=== PATIENT | male | born 1955 | race Caucasian/White ===

== ENCOUNTER 2019-11-14 11:01 | Observation (INO) ==
[~2019-11-14 11:01] MED LIST: Buffered Lidocaine 1% SYRIN 1 ml INTRADERM ONE; DiMENhydriNATE IV 50 mg/ml 1 ml VIAL IV PUSH ONE; Famotidine IV 10 MG/ML 2 ml VIAL (20 mg) IV ONE; Lactated Ringers 1000 ml BAG 1,000 ML IV SCH; Lidocaine 2% PF 5 ML VIAL ONE; Midazolam 2 mg/2 ml VIAL 1 mg/ml 2 ml VIAL (2 mg) ONE; Propofol 10 MG/ML 20 ML BTL ONE
[2019-11-14] MEDS ORDERED: DiMENhydriNATE IV 50 mg/ml 1 ml VIAL ONE (11:17)
[2019-11-14] MEDS ORDERED: ceFAZolin 2 GM PREMIX 2 GM/50 ML BAG ONE (11:18)
[2019-11-14] MEDS ORDERED: Buffered Lidocaine 1% SYRIN 1 ml INTRADERM ONE (11:18)
[2019-11-14] MEDS ORDERED: Famotidine IV 10 MG/ML 2 ml VIAL (20 mg) ONE (11:46)
[2019-11-14 13:05] LABS: Activated Partial Thrombo Time 32.6 seconds (26.0-38.0); INR 1.04 (0.82-1.09)
[2019-11-14] MEDS ORDERED: fentaNYL 250 mcg/5 ml 50 MCG/ML 5 ml VIAL (250 MCG) ONE (13:06)
[2019-11-14] MEDS ORDERED: Propofol 10 MG/ML 20 ML BTL ONE (13:07)
[2019-11-14] MEDS ORDERED: Ketamine HCL 50 mg/ml 10 ml VIAL (500 MG) ONE (13:07)
[2019-11-14] MEDS ORDERED: Lidocaine 2% PF 5 ML VIAL ONE (13:07)
[2019-11-14] MEDS ORDERED: Midazolam 5 mg/5 ml VIAL 1 mg/ml 5 ml VIAL (5 mg) ONE (13:07)
[2019-11-14] MEDS ORDERED: Succinylcholine 200 mg VIAL 20 mg/ml 10 ml VIAL (200 mg) ONE (13:07)
[2019-11-14] MEDS ORDERED: EPHEDrine (Pressors) 50 MG/ML VIAL ONE (13:46)
[2019-11-14] MEDS ORDERED: fentaNYL 100 mcg/2 ml 50 MCG/ML VIAL ONE ×3 (14:50→17:23)
[2019-11-14] MEDS ORDERED: Ondansetron 4 mg VIAL 2 MG/ML 2 ml VIAL ONE (15:07)
[2019-11-14] MEDS ORDERED: diPHENhydraMINE IV 50 MG/ML 1 ml VIAL (BENADRYL) IV PRN (16:19)
[2019-11-14] MEDS ORDERED: Magnesium Hydroxide LIQ 30 ML UDC PO PRN (16:19)
[2019-11-14] MEDS ORDERED: diPHENhydraMINE 25 mg TAB PO PRN (16:19)
[2019-11-14] MEDS ORDERED: Lactulose 30 ml UDC PO PRN (16:19)
[2019-11-14] MEDS ORDERED: Ondansetron 4 mg VIAL 2 MG/ML 2 ml VIAL IV PRN (16:19)
[2019-11-14] MEDS ORDERED: oxyCODONE/Acetamin 5/325 mg TAB PO PRN ×2 (16:19→16:28)
[2019-11-14] MEDS ORDERED: Morphine 2 MG/ML SYRINGE IV PRN (16:19)
[2019-11-14] MEDS ORDERED: Ondansetron ODT 4 mg TAB 4 MG TAB PO PRN (16:19)
[2019-11-14] MEDS ORDERED: Naloxone 0.4 mg VIAL 0.4 mg/ml 1 ml VIAL IV PRN (16:28)
[2019-11-14] MEDS ORDERED: HYDROcodone/ACETAMIN 5/325 mg TAB PO PRN (16:28)
[2019-11-14] MEDS ORDERED: Prochlorperazine 5 mg/ml 2 ml VIAL (10 mg) IV PRN (16:28)
[2019-11-14] MEDS: fentaNYL 100 mcg/2 ml 50 MCG/ML VIAL IV PRN ×3 (16:29→17:24)
[2019-11-14] MEDS ORDERED: HYDROcodone/ACETAMIN 5/325 mg TAB ONE (16:31)
[2019-11-14] MEDS ORDERED: Morphine 4 MG/ML VIAL (1 ml) ONE (16:58)
[2019-11-14] MEDS ORDERED: Lactated Ringers 1000 ml BAG 1,000 ML IV SCH (17:00)
[2019-11-14] MEDS: Morphine 4 MG/ML VIAL (1 ml) IV PRN ×2 (17:01→17:15)
[2019-11-14] MEDS ORDERED: oxyCODONE/Acetamin 5/325 mg TAB ONE (17:21)
[2019-11-14] MEDS: Magnesium Hydroxide LIQ 30 ML UDC PO SCH (21:44)
[2019-11-14] MEDS: ceFAZolin 1 GM ADVAN 1 GM in NS 0.9% 50 ML 50 ML IVPB SCH (21:45)
[2019-11-14] MEDS: oxyCODONE/Acetamin 5/325 mg TAB PO PRN (22:56)
[2019-11-15] MEDS: ceFAZolin 1 GM ADVAN 1 GM in NS 0.9% 50 ML 50 ML IVPB SCH ×2 (04:44→12:44)
[2019-11-15] MEDS: oxyCODONE/Acetamin 5/325 mg TAB PO PRN ×3 (05:28→13:29)
[2019-11-15 07:11] LABS: Hematocrit 38 % (42-52); Mean Platelet Volume 7.3 fL (7.4-10.4); Platelet Count 294 10^3/uL (150-450)
[2019-11-15 07:20] LABS: BUN/Creatinine Ratio 17.1 (8-20); Calcium 8.6 mg/dL (8.6-10.3); EGFR African American 114.1 (>60); EGFR Non-African American 94.3 (>60); Potassium 4.4 mmol/L (3.5-5.0)
[2019-11-15] MEDS ORDERED: Vitamin THERAPEUTIC TAB PO SCH (09:00)
[2019-11-15] MEDS: Magnesium Hydroxide LIQ 30 ML UDC PO SCH (09:10)
[2019-11-15 12:05] VITALS: BP 104/54
== END 2019-11-15 15:45 | disposition home or self-care (01) ==
LOC: OR 11:01 → EDSTATUS 12:30 → INTOOBSV 16:19 → SSU 16:19
PROVIDERS: ADMIT Orthopaedic Surgery Adult Reconstructive Orthopaedic Surgery; ATTEND Orthopaedic Surgery Adult Reconstructive Orthopaedic Surgery

== ENCOUNTER 2022-09-14 05:41 | Observation (INO) ==
[2022-09-14] MEDS ORDERED: Buffered Lidocaine 1% SYRIN 1 ml INTRADERM ONE (06:00)
[2022-09-14] MEDS ORDERED: Lactated Ringers 1000 ml BAG 1,000 ML IV SCH ×2 (06:00→11:00)
[2022-09-14] MEDS ORDERED: Ondansetron 4 mg VIAL 2 MG/ML 2 ml VIAL ONE (06:04)
[2022-09-14] MEDS ORDERED: Lidocaine 2% PF 5 ML VIAL ONE ×2 (06:04→09:22)
[2022-09-14] MEDS ORDERED: Propofol 10 MG/ML 20 ML BTL ONE ×3 (06:04→09:09)
[2022-09-14] MEDS ORDERED: Phenylephrine IV 10 MG/ML 1 ml VIAL ONE (06:04)
[2022-09-14] MEDS ORDERED: ceFAZolin 2 GM in NS PREMIX 2 GM/100 ML BAG IVPB ONE (06:05)
[2022-09-14] MEDS ORDERED: Midazolam 2 mg/2 ml VIAL 1 mg/ml 2 ml VIAL (2 mg) ONE (06:10)
[2022-09-14] MEDS ORDERED: fentaNYL 100 mcg/2 ml 50 MCG/ML VIAL ONE ×2 (06:10→07:27)
[2022-09-14 06:39] LABS: Rapid COVID-19 Molecular Undetected (Undetected)
[2022-09-14 06:49] LABS: INR 1.05 (0.88-1.18)
[2022-09-14] MEDS ORDERED: ROPIVACAINE 5 MG/ML 30 ML BTL (0.5%) ONE (07:18)
[2022-09-14] MEDS ORDERED: Rocuronium 50 mg VIAL 10 mg/ml 5 ml VIAL (50 mg) ONE (07:27)
[2022-09-14] MEDS ORDERED: fentaNYL 100 mcg/2 ml 50 MCG/ML VIAL IV PRN (07:47)
[2022-09-14] MEDS ORDERED: Naloxone 0.4 mg VIAL 0.4 mg/ml 1 ml VIAL IV PRN (07:47)
[2022-09-14] MEDS ORDERED: Prochlorperazine 5 mg/ml 2 ml VIAL (10 mg) IV PRN (07:47)
[2022-09-14] MEDS ORDERED: fentaNYL 250 mcg/5 ml 50 MCG/ML 5 ml VIAL (250 MCG) ONE (08:09)
[2022-09-14] MEDS ORDERED: Dexamethasone IV 4 MG/ML VIAL 1 ml VIAL ONE (08:11)
[2022-09-14] MEDS ORDERED: Glycopyrrolate IV 0.2 MG/ML 1 ML VIAL ONE (08:14)
[2022-09-14] MEDS ORDERED: Acetaminophen IV 1 GM/100ML 1,000 MG/100 ML BAG IV ONE (08:31)
[2022-09-14] MEDS ORDERED: HYDROmorphone 0.5 MG/0.5 ML SYRINGE ONE ×2 (08:47→09:08)
[2022-09-14] MEDS ORDERED: Ondansetron 4 mg VIAL 2 MG/ML 2 ml VIAL IV PRN (10:18)
[2022-09-14] MEDS ORDERED: Morphine 2 MG/ML SYRINGE IV PRN (10:18)
[2022-09-14] MEDS ORDERED: Lactulose 30 ml UDC PO PRN (10:18)
[2022-09-14] MEDS ORDERED: Magnesium Hydroxide LIQ 30 ML UDC PO PRN (10:18)
[2022-09-14] MEDS ORDERED: Ondansetron ODT 4 mg TAB 4 MG TAB PO PRN (10:18)
[2022-09-14] MEDS ORDERED: Morphine 4 MG/ML VIAL (1 ml) ONE (10:51)
[2022-09-14] MEDS: Morphine 4 MG/ML VIAL (1 ml) IV PRN ×2 (10:52→10:59)
[2022-09-14 15:21] VITALS: BP 132/77
[2022-09-14] MEDS ORDERED: ceFAZolin 1 GM ADVAN 1 GM in NS 0.9% 50 ML 50 ML IVPB SCH (16:00)
[2022-09-14] MEDS ORDERED: Magnesium Hydroxide LIQ 30 ML UDC PO SCH (21:00)
[2022-09-15] MEDS ORDERED: Vitamin THERAPEUTIC TAB PO SCH (09:00)
== END 2022-09-14 17:15 | disposition home or self-care (01) ==
LOC: INTOOBSV 05:41 → AA 05:41 → SSU 10:18
PROVIDERS: ADMIT Orthopaedic Surgery Adult Reconstructive Orthopaedic Surgery; ATTEND Orthopaedic Surgery Adult Reconstructive Orthopaedic Surgery